=== PATIENT | male | born 1990 | race Caucasian/White ===

== ENCOUNTER 2018-04-26 00:57 | Emergency (ER) | payer SELFPAY ==
[~2018-04-26] VITALS: Ht 188 cm; Wt 79.5 kg
[~2018-04-26 00:57] MED LIST: NO HOME MEDICATIONS
[2018-04-26 01:01] VITALS: BP 133/91; TEMP 97.9
[2018-04-26 03:00] VITALS: PULSE 65
== END 2018-04-26 03:00 | disposition home or self-care (01) ==
LOC: COL.ER 00:57
DX: S61.210A Laceration without foreign body of right index finger without damage to nail, initial encounter (principal); Z23 Encounter for immunization; Z90.89 Acquired absence of other organs; W26.8XXA Contact with other sharp object(s), not elsewhere classified, initial encounter; Y92.59 Other trade areas as the place of occurrence of the external cause

== ENCOUNTER → 2018-05-06 | Emergency (ER) | payer SELFPAY | LOC: COL.ER 16:36 | DX: Z72.9 Problem related to lifestyle, unspecified (principal) ==

== ENCOUNTER 2020-07-10 02:03 | Emergency (ER) | payer SELFPAY ==
[~2020-07-10] VITALS: Ht 188 cm; Wt 80.9 kg
[2020-07-10 02:15] VITALS: TEMP 98.8
[2020-07-10 02:56] LABS: ALANINE AMINOTRANSFERASE 32 U/L (4-49); ALBUMIN 4.6 gm/dL (3.5-5.0); ALKALINE PHOSPHATASE 78 U/L (50-136); ANION GAP 13 mmol/L (7-16); AST,SGOT 46 U/L (15-37); BILIRUBIN,TOTAL 0.3 mg/dL (0.0-1.0); BLOOD UREA NITROGEN 8 mg/dL (9-20); CARBON DIOXIDE 26 mmol/L (22-30); CHLORIDE 102 mmol/L (98-107); CREATININE, serum 1.09 (0.66-1.25); GLUCOSE 113 mg/dL (74-106); POTASSIUM 4.2 mmol/L (3.4-5.0); SODIUM 141 mmol/L (137-145); TOTAL PROTEIN 8.7 gm/dL (6.4-8.2)
[2020-07-10 02:57] LABS: ACETAMINOPHEN < 10 ug/mL (10-30); SALICYLATE < 1.0 mg/dL
[2020-07-10] MEDS ORDERED: ZOFRAN ODT4 MG PO (03:32)
[2020-07-10 03:40] VITALS: BP 120/81; PULSE 78
== END 2020-07-10 03:42 | disposition home or self-care (01) ==
LOC: COL.ER 02:03
PROVIDERS: Emergency Medicine
DX: R11.10 Vomiting, unspecified (principal); Z90.49 Acquired absence of other specified parts of digestive tract